=== PATIENT | female | born 1995 | race Caucasian/White ===

== ENCOUNTER → 2016-11-30 | Outpatient (CLI) | payer OTHER | END | disposition home or self-care (01) | LOC: C.RDSM 15:00 | PROVIDERS: ATTEND Physical Medicine & Rehabilitation Sports Medicine | DX: M76.892 Other specified enthesopathies of left lower limb, excluding foot (principal) ==

== ENCOUNTER 2017-02-20 23:03 | Emergency (ER) | payer OTHER ==
[~2017-02-20] VITALS: Ht 154.9 cm; Wt 73.1 kg
[2017-02-20 23:08] VITALS: TEMP 36.8; Ht 154.9 cm; Wt 73.1 kg
[2017-02-20] MEDS ORDERED: ANS100 PO (23:27)
[2017-02-20] MEDS ORDERED: DEXAMETHASONE SOD INJ 10 MG/ML VIAL IM STA (23:47)
[2017-02-20] MEDS ORDERED: DIAZEPAM INJ 5 MG/ML 2 ML CARP IM STA (23:47)
--- NOTE | 2017-02-21 00:07 | EMERGENCY ROOM VISIT NOTE ---
ED Visit Note First contact with patient: 23:29 CHIEF COMPLAINT: Low back pain HISTORY OF PRESENT ILLNESS: This 21-year-old female patient presents to the emergency department, ambulatory, complaining of pain in the low back which began several years ago. The patient states she has been dealing with chronic low back pain in her lumbar spine, radiating to the left hip, and down the left leg for several years. She is currently under the care of Dr. Hardwick, and has been through physical therapy and is currently on high-dose anti- inflammatory treatment. She states she should be due to have an MRI performed in the next 1-2 weeks. She was at the [facility] today, and doing a lot of standing. She states she believes the pain began flaring up due to that. The patient describes left hip and spine pain which became more agitated several hours ago. She states her left foot is numb and tingly, and the majority of her pain is in the posterior leg, which she describes as sharp and shooting. She states this type of pain is also in the left hip. She states in the anterior thigh, she is experiencing dull and achy pain. The pain she is experiencing now is similar to her chronic pain, however it seems to be worse. Her legs have not given out and she has not had any bowel or bladder dysfunction. She does report feeling muscle spasms, which makes it very difficult for her to walk. The patient did need her brother to help her walk. The patient does report having sensation in her lower extremities, however it is slightly decreased on the left. She did not take any additional pain medication other than her chronic anti-inflammatories which she did take twice today. She has not taken any muscle relaxers, nor has she been on steroids recently. The patient denies any significant urinary changes today, denies any chest pain or difficulty breathing. REVIEW OF SYSTEMS: A 10 system review of systems was performed with positives and pertinent negatives listed in the history of present illness. All other systems were reviewed and are negative. ALLERGIES: None MEDICATIONS: Flurbiprofen PMH: Chronic low back pain SOCIAL HISTORY: The patient is a [employer] student. She lives locally. She denies drug, tobacco use. She admits to occasional alcohol use. PHYSICAL EXAM: VITALS: Vitals are noted on the nurse's note and reviewed by myself. Vital signs stable. GENERAL: This is a 21-year-old white female, in no acute distress, nondiaphoretic, well-developed well-nourished. SKIN: The skin was without rashes, erythema, edema, or bruising. Capillary refill less than 2 seconds. NECK: Supple without nuchal rigidity. No cervical spine tenderness. No paraspinous muscle tenderness. HEART: Regular rate and rhythm without murmurs gallops or rubs. LUNGS: Clear to auscultation bilaterally without wheezes, rales or rhonchi. ABDOMEN: Positive bowel sounds x 4. Normal tympanic percussion. Soft, nontender, without masses or organomegaly. Muñoz sign negative. MUSCULOSKELETAL: No muscle atrophy, erythema, or edema noted of the back. There is mild tenderness over the lumbar spinous processes. There is moderate tenderness over the paraspinous muscles on the left. There is no tenderness over the thoracic spine or paraspinous muscles. There are muscle spasms present. The patient is slow to move around with maximum tenderness with changing positions from sitting to lying and lying to sitting. Positive straight leg raise test on the left. NEURO: Patient was alert and oriented to person place and time. Normal sensation to light and sharp touch. Deep tendon reflexes 2+ in the lower extremities. Dorsalis pedis pulse 2+ bilaterally. Strength 5/5 and equal in the bilateral lower extremities. EMERGENCY DEPARTMENT COURSE: The patient was seen and evaluated as above. The patient presents with a worsening of her chronic back pain. She states she has no new symptoms, however her symptoms are severe. I did offer to order an MRI here in the emergency department, and the patient declines, as this is being addressed outpatient by Dr. Eller. I discussed treatment options at this time, and the patient and I decided on a muscle relaxers and anti- inflammatory medications to help relieve her discomfort. She was given 10 mg Decadron and 10 mg Valium IM and did report improvement in her symptoms. She was discharged home with a home pack of Valium and prescriptions for Valium and prednisone to [facility] tomorrow. The patient was encouraged to contact orthopedics for an earlier follow-up or earlier MRI if possible. Discharge instructions were reviewed. The patient was discharged home in good condition. DIFFERENTIAL DIAGNOSIS: Cauda equina syndrome, malignancy, sciatica, low back strain, muscle spasms, disc protrusion, spinal cord injury, and others DIAGNOSIS: Flare-up of chronic lumbar back pain Current/Historical Medications Scheduled Flurbiprofen (Flurbiprofen), 1 DOSE PO UD Prednisone (Prednisone), 0 PO DAILY Scheduled PRN Diazepam (Valium), 5 MG PO TID PRN for Muscle Spasms Allergies Coded Allergies: No Known Allergies (Unverified , 02/20/17) Vital Signs Date Time Temp Pulse Resp B/P (MAP) Pulse Ox O2 Delivery O2 Flow Rate FiO2 02/21/17 01:01 100 18 133/97 99 02/20/17 23:08 36.8 103 18 142/91 98 Room Air Medications Administered Medications (Trade) Dose Ordered Sig/Rosa Route Start Time Stop Time Status Last Admin Dose Admin Dexamethasone Sodium Phosphate (Decadron Inj) 10 mg NOW STAT IM 02/20/17 23:47 02/20/17 23:54 DC 02/21/17 00:00 10 MG Diazepam (Valium Inj) 10 mg NOW STAT IM 02/20/17 23:47 02/20/17 23:54 DC 02/21/17 00:00 10 MG Diazepam (Valium Tab) 5 mg PRN ONCE PO 02/21/17 00:45 02/21/17 00:46 DC 02/21/17 00:59 15 MG Departure Information Impression Primary Impression: Sciatica Additional Impressions: Strain of lumbar region Chronic back pain Dispostion Home / Self-Care Condition GOOD Prescriptions Diazepam (Valium) 5 Mg Tab 5 MG PO TID Y for Muscle Spasms, #9 TAB Prov: Marya Huerta PA-C 02/21/17 Prednisone (Prednisone) 20 Mg Tab 0 PO DAILY, #18 TAB 3 DAILY FOR 3 DAYS, THEN 2 DAILY FOR 3 DAYS, THEN 1 DAILY FOR 3 DAYS. Prov: Marya Huerta PA-C 02/21/17 Referrals No Doctor, Assigned (PCP) Irineo Hardwick M.D. Patient Instructions ED Sciatica, My [facility] Additional Instructions You have been treated in the Emergency Department for Back Pain. You have received pain medicine in the emergency department which impairs your ability to operate a vehicle. It is illegal for you to drive after receiving these medicines. You have been prescribed Valium 5 mg, 1 tab tabs orally, three times per day. Do NOT exceed 3 tabs per day. Take your first dose at bedtime as it can make you drowsy. Always take all medications as prescribed. Do not drive if you take this medication. You have been prescribed Prednisone. This is a steroid which will help decrease your inflammation, redness, and itch. Take this medicine as prescribed. Take the ENTIRE 9 day course. It is best to take steroids early in the morning as PM dosing can affect your sleeping patterns. For pain control, you can use the following [id number] medicines (if >12 yo): Ibuprofen(Motrin, Advil) may be used for fever or pain. Use 600mg every six hours as needed. Take with food. Avoid using more than 2400mg in a 24 hour period. Do not use 2400mg per day for more than three consecutive days without physician direction. Prolonged inappropriate use can lead to stomach upset or ulcers. (AND/OR) Acetaminophen(Tylenol) may be used for fever or pain. Use 1000mg every six hours as needed. Avoid using more than 3000mg in a 24 hour period. If this is an acute injury, ice can be applied to the area of pain for the first 3 days to help decrease pain and inflammation. After the first 3 days, a heating pad can be used over the area for continued soothing relief. You should schedule a follow-up appointment in 2-3 days with your Primary Care Provider/orthopedic surgeon for further evaluation and treatment of your back pain. Return to the Emergency Department if your current symptoms worsen despite treatment course outlined above, or if you develop any of the following symptoms : intractable pain despite aforementioned treatment course, loss of control of your bowel or bladder, numbness or tingling in your groin, or development of a fever. Work Instructions Return To Work: 2 days Problem Qualifiers Primary Impression: Sciatica Laterality: left Qualified Codes: M54.32 - Sciatica, left side Additional Impressions: Strain of lumbar region Encounter type: initial encounter Qualified Codes: S39.012A - Strain of muscle, fascia and tendon of lower back, initial encounter Chronic back pain Back pain location: low back pain Back pain laterality: left Sciatica presence: with sciatica Sciatica laterality: sciatica of left side Qualified Codes: M54.42 - Lumbago with sciatica, left side; G89.29 - Other chronic pain
[2017-02-21] MEDS ORDERED: DIAZ-165 PO (00:45)
[2017-02-21] MEDS ORDERED: DIAZEPAM 5MG TAB PO ONE (00:45)
[2017-02-21] MEDS ORDERED: PRED20TA PO (00:45)
[2017-02-21] MEDS ORDERED: EMPTY 8 DRAM VIAL ONE (00:53)
[2017-02-21 01:01] VITALS: BP 133/97; PULSE 100; O2SAT 99
== END 2017-02-21 01:02 | disposition home or self-care (01) ==
LOC: C.EDB 23:06 → C.EDA 02-21 01:02
DX: M54.42 Lumbago with sciatica, left side (principal); S39.012A Strain of muscle, fascia and tendon of lower back, initial encounter; X58.XXXA Exposure to other specified factors, initial encounter; G89.29 Other chronic pain

== ENCOUNTER → 2017-04-22 | Day surgery (SDC) | payer OTHER ==
[2017-03-29 15:32] VITALS: Ht 154.9 cm; Wt 70.5 kg
[~2017-04-22] VITALS: Ht 154.9 cm; Wt 70.5 kg
[~2017-04-22] MED LIST: BUPIVACAINE 0.25% 2.5MG/ML PF 10 ML VIAL ONE; IBUP-103 PO; IOPAMIDOL INJ 61% 15 ML VIAL ONE; LIDOCAINE HCL 1% MPF 5 ML VIAL ONE; METHYLPREDNISOLONE ACETATE 80 MG/ML VIAL ONE
--- NOTE | 2017-04-22 15:10 | History & Physical Bridge - SC ---
H&P Re-Evaluation Bridge Note: I have examined the patient, reviewed the History & Physical and in the interval since the performance of the History & Physical I have noted the following changes of clinical significance: No changes noted
[2017-04-22 15:36] VITALS: TEMP 37.1
--- NOTE | 2017-04-22 15:38 | Discharge Instructions ---
Discharge Instructions Date of Service Apr 22, 2017. Visit Reason for Visit: Low Back Pain Discharge Discharge Diagnosis / Problem: low back pain Discharge Goals Goal(s): Decrease discomfort, Improve function Activity Recommendations Activity Limitations: resume your previous activity Anesthesia . Post Anesthesia Instructions: If you have had General Anesthesia or IV Sedation: * Do not drive today. * Resume driving when surgeon permits. * Do not make important decisions or sign legal documents today. * Call surgeon for: 1. Temperature elevations greater than 101 degrees F. 2. Uncontrollable pain. 3. Excessive bleeding. 4. Persistent nausea and vomiting. 5. Medication intolerance (nausea, vomiting or rash). * For nausea and vomiting use only clear liquids such as: tea, soda, bouillon until nausea subsides, then gradually increase diet as tolerated. * If you have any concerns or questions, call your surgeon's office. If physician is unavailable and it is an emergency, call 911 or go to the nearest emergency room. . Diet Recommendations Recommended Home Diet: resume previous diet Procedures Procedures Performed: Left L4-5 Facet Joint Injection Pending Studies Studies pending at discharge: no Medical Emergencies . Who to Call and When: Medical Emergencies: If at any time you feel your situation is an emergency, please call 911 immediately. . Non-Emergent Contact Non-Emergency issues call your: Specialist . . "Provider Documentation" section prepared by Thaddeus Bojorquez. .
[2017-04-22 15:44] VITALS: BP 133/89; PULSE 95; O2SAT 98
--- NOTE | 2017-04-22 15:58 | OPERATIVE REPORT ---
DATE OF OPERATION: 04/22/2017 PREOPERATIVE DIAGNOSIS: Chronic low back pain, left L4-L5 facet arthropathy. POSTOPERATIVE DIAGNOSIS: Same. PROCEDURE: Left L4-5 facet joint injection under fluoroscopic guidance. SURGEON: Dr. Thaddeus Bojorquez. INDICATIONS: The patient is a 21-year-old white female who was evaluated in the office for chronic low back pain. Her examination and history were most consistent with a facet arthropathy. She presents today for a facet joint injection to provide her with relief of the pain. PHYSICAL EXAMINATION: Pleasant female seated comfortably. She has point tenderness to palpation of her L4-L5 facet area. This is worse with extension and rotation. She has relief of pain with forward flexion to the opposite direction. She has normal motor and sensory examination. CONSENT: Verbal and written consent was obtained from the patient. Risks and benefits were reviewed. Risks include but are not limited to abscess and allergic reaction. The patient wishes to proceed. PROCEDURE: The patient was taken back to the special procedures room of the [facility] where she was maintained in a prone position. Backside was cleansed with Betadine x3 and a dry sterile dressing was applied. Fluoroscope was used to identify the left L4-L5 facet joint, the overlying skin was anesthetized with 5 mL of lidocaine 1% with a 25 gauge 1.5-inch needle. A 25 gauge 3.5-inch spinal needle was then directed down towards the facet joint under fluoroscopic guidance from an oblique view. It entered the joint. Isovue 300 contrast showed it to be a little lateral, it was repositioned a little bit more medial within the joint which she was injected with 40 mg of Depo-Medrol and 0.5 mL of bupivacaine 0.25%. Injection was well tolerated. DISPOSITION: The patient is taken out into the discharge recovery area where she will be discharged home once discharge criteria have been met. She will follow up in the office in 4 weeks' time. I attest to the content of the Intraoperative Record and any orders documented therein. Any exception s are noted below.
== END | disposition home or self-care (01) ==
LOC: X.SURG 14:17
PROVIDERS: ATTEND Physical Medicine & Rehabilitation
DX: M47.816 Spondylosis without myelopathy or radiculopathy, lumbar region (principal); M54.5 Low back pain; G89.21 Chronic pain due to trauma